=== PATIENT | female | born 1965 | race Hispanic/Latino ===

== ENCOUNTER 2022-07-20 08:53 | Emergency (ER) | payer OTHER ==
[2022-07-20 09:32] LABS: Absolute Lymphocytes (CBC) 1.9 K/uL (0.7-4.9); Hematocrit 39.7 % (36.0-45.0); Lymphocytes % 24.5 % (15.3-44.8); MCV 89.3 fL (80-100); RBC Red Blood Cell Count 4.45 M/uL (3.86-4.86)
[2022-07-20] MEDS ORDERED: NA CHLORIDE 0.9% 1,000 ML ONE (09:35)
[2022-07-20] MEDS ORDERED: MORPHINE 4 MG/ML SYR ONE (09:46)
[2022-07-20] MEDS ORDERED: ONDANSETRON 4 MG/2 ML VIAL ONE (09:46)
[2022-07-20 09:49] LABS: Potassium 3.5 mmol/L (3.5-5.1)
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
[2022-07-20 13:10] VITALS: BP 162/89; O2SAT 99
== END 2022-07-20 13:03 | disposition home or self-care (01) ==
LOC: ER 08:53
DX: S39.012A Strain of muscle, fascia and tendon of lower back, initial encounter (principal); S16.1XXA Strain of muscle, fascia and tendon at neck level, initial encounter; V59.40XA Driver of pick-up truck or van injured in collision with unspecified motor vehicles in traffic accident, initial encounter
CPT/HCPCS: 85025; 80048; 36415; 70450; 72125; 71260; 74177; Q9967; J7030; J2405